=== PATIENT | female | born 1975 | race Caucasian/White ===

== ENCOUNTER 2018-02-12 08:45 | Emergency (ER) | payer OTHER ==
[~2018-02-12] VITALS: Ht 162.6 cm; Wt 98.0 kg
[~2018-02-12 08:45] MED LIST: HYDR10TA16 PO; LORTA5 PO; METH750T2 PO
[2018-02-12 08:47] VITALS: BP 153/96; PULSE 84; RESP 15; TEMP 97.7; O2SAT 100
[2018-02-12] MEDS ORDERED: SODIUM CHLORID 0.9% 500 ML INJ 500 ML IV ONE (09:00)
--- NOTE | 2018-02-12 09:01 | PD ---
HPI Chief Complaint: Cardiac Complaint Time Seen by Provider: 08:56 Travel History International Travel<30 days: No Contact w/Intl Traveler<30days: No Traveled to known affect area: No History of Present Illness HPI Patient states that she has been having palpitations, has been having an evaluation for it recently, and placed on atenolol while the remainder of her workup returns. Primary care physician is Dr. Jose Farley, her planograph operator is Dr. garnica. She has been diagnosed with sinus arrhythmia thus far and nothing else. Patient returns stating that her Apple Watch showed her heart rate to be between 30 and as high as 200. I advised patient that the apple watch can be affected by motion and other and other types of interference which will not be as specific as a Holter monitor or a loop recorder. Stated allergy to naproxen Past medical history significant for migraines, LEEP, tubal ligation, cyst in kidney, bulging disc repair, tobacco use. PFSH Past Medical History Cancer: No Cardiovascular Problems: No Cerebrovascular Accident: No Diabetes: No Diminished Hearing: No Endocrine: No Genitourinary: Yes (cysts on kidney, blood in urine) Headaches: Yes Hepatitis: No Hiatal Hernia: No Immune Disorder: No Medical other: Yes (BACK) Musculoskeletal: Yes Neurologic: Yes (MIGRAINES, RIGHT LEG NUMBNESS) Psychiatric: No Reproductive: No Respiratory: No Migraines: Yes Seizures: No Thyroid Disease: No ?: Not Tubal Ligation: Yes Past Surgical History Abdominal Surgery: No Cardiac Surgery: No Endocrine Surgery: No Eye Surgery: No Genitourinary Surgery: No Gynecologic Surgery: Yes (LEEP,TUBAL LIGATION) Pacemaker: No Thoracic Surgery: No Other Surgery: Yes Social History Alcohol Use: Yes Tobacco Use: Yes (1 PPD) Substance Use: No Allergies-Medications (Allergen,Severity, Reaction): Coded Allergies: naproxen (Unverified Allergy, Severe, ITCHING, 02/12/18) Reported Meds & Prescriptions Reported Meds & Active Scripts Active Reported Vitamin D3 Maximum Strength (Cholecalciferol) 5,000 Unit Cap 50,000 Units PO WEEKLY Atenolol 25 Mg Tab 25 Mg PO DAILY Lorazepam 1 Mg Tab 1 Mg PO BID PRN Robaxin (Methocarbamol) 750 Mg Tab 750 Mg PO QID Hydrocodone-Acetaminophen 10-325 mg Tab 1 Tab PO Q4H PRN Review of Systems General / Constitutional: No: Fever Eyes: No: Visual changes HENT: No: Headaches Cardiovascular: Positive: Palpitations Respiratory: No: Shortness of Breath Gastrointestinal: No: Abdominal Pain Genitourinary: No: Dysuria Musculoskeletal: No: Pain Skin: No Rash Neurologic: No: Weakness Psychiatric: No: Depression Endocrine: No: Polydipsia Hematologic/Lymphatic: No: Easy Bruising Physical Exam Narrative GENERAL: SKIN: Warm and dry. HEAD: Atraumatic. Normocephalic. EYES: Pupils equal and round. No scleral icterus. No injection or drainage. ENT: No nasal bleeding or discharge. Mucous membranes pink and moist. NECK: Trachea midline. No JVD. CARDIOVASCULAR: Regular rate and rhythm. RESPIRATORY: No accessory muscle use. Clear to auscultation. Breath sounds equal bilaterally. GASTROINTESTINAL: Abdomen soft, non-tender, nondistended. MUSCULOSKELETAL: Extremities without clubbing, cyanosis, or edema. No obvious deformities. NEUROLOGICAL: Awake and alert. No obvious cranial nerve deficits. Motor grossly within normal limits. Five out of 5 muscle strength in the arms and legs. Normal speech. PSYCHIATRIC: Appropriate mood and affect; insight and judgment normal. Data Data Last Documented VS Vital Signs Date Time Temp Pulse Resp B/P (MAP) Pulse Ox O2 Delivery O2 Flow Rate FiO2 02/12/18 09:02 77 19 159/89 (112) 99 Room Air 02/12/18 08:47 97.7 Orders Orders Electrocardiogram (02/12/18 08:57) B-Type Natriuretic Peptide (02/12/18 08:57) Ckmb (Isoenzyme) Profile (02/12/18 08:57) Complete Blood Count With Diff (02/12/18 08:57) Comprehensive Metabolic Panel (02/12/18 08:57) D-Dimer (02/12/18 08:57) Prothrombin Time / Inr (Pt) (02/12/18 08:57) Act Partial Throm Time (Ptt) (02/12/18 08:57) Troponin I (02/12/18 08:57) Lipase (02/12/18 08:57) Chest, Single Ap (02/12/18 08:57) Ecg Monitoring (02/12/18 08:57) Iv Access Insert/Monitor (02/12/18 08:57) Oximetry (02/12/18 08:57) Oxygen Administration (02/12/18 08:57) Sodium Chlorid 0.9% 500 Ml Inj (Ns 500 M (02/12/18 09:00) Labs Laboratory Tests Test 02/12/18 09:10 White Blood Count 9.7 TH/MM3 Red Blood Count 4.53 MIL/MM3 Hemoglobin 12.6 GM/DL Hematocrit 38.2 % Mean Corpuscular Volume 84.4 FL Mean Corpuscular Hemoglobin 27.8 PG Mean Corpuscular Hemoglobin Concent 33.0 % Red Cell Distribution Width 14.9 % Platelet Count 314 TH/MM3 Mean Platelet Volume 9.5 FL CBC Comment AUTO DIFF Differential Total Cells Counted 100 Neutrophils % (Manual) 75 % Lymphocytes % 18 % Monocytes % 6 % Basophils % 1 % Neutrophils # (Manual) 7.3 TH/MM3 Differential Comment FINAL DIFF MANUAL Platelet Estimate NORMAL Platelet Morphology Comment NORMAL Ovalocytes 1+ Prothrombin Time 10.6 SEC Prothromb Time International Ratio 1.0 RATIO Activated Partial Thromboplast Time 26.0 SEC D-Dimer Quantitative (PE/DVT) 0.31 MG/L FEU Blood Urea Nitrogen 14 MG/DL Creatinine 0.84 MG/DL Random Glucose 98 MG/DL Total Protein 6.7 GM/DL Albumin 3.2 GM/DL Calcium Level 8.3 MG/DL Alkaline Phosphatase 52 U/L Aspartate Amino Transf (AST/SGOT) 13 U/L Alanine Aminotransferase (ALT/SGPT) 15 U/L Total Bilirubin 0.3 MG/DL Sodium Level 141 MEQ/L Potassium Level 4.0 MEQ/L Chloride Level 108 MEQ/L Carbon Dioxide Level 25.9 MEQ/L Anion Gap 7 MEQ/L Estimat Glomerular Filtration Rate 75 ML/MIN Total Creatine Kinase 86 U/L Troponin I LESS THAN 0.02 NG/ML B-Type Natriuretic Peptide 48 PG/ML Lipase 111 U/L [facility] Medical Decision Making Medical Screen Exam Complete: Yes Emergency Medical Condition: Yes Medical Record Reviewed: Yes Interpretation(s) EKG shows normal sinus rhythm, 74 bpm, normal intervals, no evidence of any STEMI pattern, Differential Diagnosis Palpitations versus arrhythmia versus dysrhythmia versus anemia versus dehydration versus electrolyte abnormalities Narrative Course CBC shows no leukocytosis, no anemia, normal platelet count, no left shift. Coagulation profile is within normal limits D-dimer is negative Electrolytes are all within normal limits, renal function/liver function/ pancreatic functions are all within normal limits. Beta natruretic peptide is 48 and the first set of cardiac enzymes are negative. Diagnosis Primary Impression: Palpitation Patient Instructions: General Instructions, Heart Palpitations (ED) Disposition: 01 DISCHARGE HOME Condition: Stable Sabino Worrell MD Feb 12, 2018 09:01
[2018-02-12 09:02] VITALS: BP 159/89; PULSE 77; RESP 19; O2SAT 99
[2018-02-12] MEDS ORDERED: LORA1TAB12 PO (09:02)
[2018-02-12] MEDS ORDERED: HYDR-3583 PO (09:02)
[2018-02-12] MEDS ORDERED: ROBA750T PO (09:02)
[2018-02-12] MEDS ORDERED: ATEN25TA PO (09:02)
[2018-02-12] MEDS ORDERED: CHOL500022 PO (09:04)
[2018-02-12 09:41] LABS: HEMATOCRIT 38.2 % (35.0-46.0); HEMOGLOBIN 12.6 GM/DL (11.6-15.3); MEAN CELL VOLUME 84.4 FL (80.0-100.0); MEAN CORPUSCULAR HEMOGLOBIN 27.8 PG (27.0-34.0); MEAN PLATELET VOLUME 9.5 FL (7.0-11.0); PLATELET COUNT 314 TH/MM3 (150-450); RED BLOOD COUNT 4.53 MIL/MM3 (4.00-5.30); RED CELL DISTRIBUTION WIDTH 14.9 % (11.6-17.2); WHITE BLOOD COUNT 9.7 TH/MM3 (4.0-11.0)
[2018-02-12 09:55] LABS: PROTHROMBIN TIME - PATIENT 10.6 SEC (9.8-11.6)
[2018-02-12 09:56] LABS: D-DIMER 0.31 MG/L FEU (0.00-0.50)
[2018-02-12 09:57] LABS: ALBUMIN 3.2 GM/DL (3.4-5.0); AST (GOT) 13 U/L (15-37); BICARBONATE 25.9 MEQ/L (21.0-32.0); BLOOD UREA NITROGEN 14 MG/DL (7-18); CALCIUM 8.3 MG/DL (8.5-10.1); CHLORIDE 108 MEQ/L (98-107); CREATININE 0.84 MG/DL (0.50-1.00); GLOMERULAR FILTRATION RATE 75 ML/MIN (>89); GLUCOSE,RANDOM 98 MG/DL (74-106); SODIUM (NA) 141 MEQ/L (136-145)
[2018-02-12 09:58] LABS: ALT (GPT) 15 U/L (10-53)
[2018-02-12 10:01] LABS: ALKALINE PHOSPHATASE 52 U/L (45-117); TOTAL BILIRUBIN ADULT 0.3 MG/DL (0.2-1.0); TOTAL PROTEIN 6.7 GM/DL (6.4-8.2); TROPONIN I LESS THAN 0.02 NG/ML (0.02-0.05)
[2018-02-12 10:22] LABS: BASOPHILS 1 % (0-2); LYMPHOCYTES 18 % (9-44); MONOCYTES 6 % (0-8); NEUTROPHIL # MANUAL DIFF 7.3 TH/MM3 (1.8-7.7); POLYS (SEG NEUTROPHILS) 75 % (16-70)
[2018-02-12 10:23] LABS: OVALOCYTES 1+ (NORMAL)
--- NOTE | 2018-02-12 10:34 | RADRPT ---
EXAM DATE/TIME: 02/12/2018 09:29 [place] COMPARISON: No previous studies available for comparison. INDICATIONS : Chest pain for three. MEDICAL HISTORY : None. SURGICAL HISTORY : None. ENCOUNTER: Initial ACUITY: 3 days PAIN SCORE: 7/10 LOCATION: Left chest FINDINGS: A single view of the chest demonstrates the lungs to be symmetrically aerated without evidence of mas s, infiltrate or effusion. The cardiomediastinal contours are unremarkable. Osseous structures are intact. CONCLUSION: The lungs are clear. Buck Brown MD on February 12, 2018 at 10:31 Board Certified Radiologist. This report was verified electronically.
--- NOTE | 2018-02-12 13:05 | EKG ---
Date Performed: 02/12/2018 Time Performed: 09:02:17 PTAGE: 42 years EKG: Sinus rhythm NORMAL ECG NO PREVIOUS TRACING DOCTOR: Jose Fierro Interpretating Date/Time 02/12/2018 13:03:04
== END 2018-02-12 11:14 | disposition home or self-care (01) ==
LOC: NEPE 08:45
DX: R00.2 Palpitations (principal); F17.200 Nicotine dependence, unspecified, uncomplicated; R07.9 Chest pain, unspecified
CPT/HCPCS: 71045; 80053; 82550; 83690; 83880; 84484; 85007; 85027; 85379; 85610; 85730; 93005; 96360; 99285; J7040